=== PATIENT | female | born 1985 | race Caucasian/White ===

== ENCOUNTER 2016-11-25 08:09 | Emergency (ER) | payer OTHER ==
[~2016-11-25] VITALS: Ht 160 cm; Wt 68.4 kg
[~2016-11-25 08:09] MED LIST: BUTA1CAP57 PO; DICY10CA3 PO; ESZO1TAB6 PO; IMATREX; KETO10TA PO; METO5TAB57 PO; ONDA4TAB7 PO; PROM25SU34 RC; SUMA20SP NS; TOPI25CA5 PO; ZOLP12.52 PO
[2016-11-25] MEDS ORDERED: DIPHENHYDRAMINE 50 MG/ML, 1ML IVPush ONE (09:00)
[2016-11-25] MEDS ORDERED: SODIUM CHLORIDE FLUSH 10ML SYR IVF ONE (09:00)
[2016-11-25] MEDS ORDERED: SODIUM CHLORIDE 0.9% 1,000ML IVBOLUS ONE ×2 (09:00→10:30)
[2016-11-25] MEDS ORDERED: KETOROLAC 30 MG/1 ML IVPush ONE (09:00)
[2016-11-25] MEDS ORDERED: METOCLOPRAMIDE 5 MG/ML, 2ML IVPush ONE (09:00)
[2016-11-25] MEDS ORDERED: METOCLOPRAMIDE 5 MG/ML, 2ML ONE (09:04)
[2016-11-25] MEDS ORDERED: DIPHENHYDRAMINE 50 MG/ML, 1ML ONE (09:04)
[2016-11-25] MEDS ORDERED: KETOROLAC 30 MG/1 ML ONE (09:04)
[2016-11-25] MEDS ORDERED: MAGNESIUM SULFATE PMX 2GM/50ML 50 ML IV ONE (09:30)
[2016-11-25] MEDS ORDERED: ONDANSETRON 2MG/ML, 2ML IVPush ONE (10:30)
[2016-11-25] MEDS ORDERED: HYDROmorphone 1 MG/ML, 1ML IVPush PRN (10:30)
[2016-11-25] MEDS ORDERED: ONDANSETRON 2MG/ML, 2ML ONE (10:50)
[2016-11-25] MEDS ORDERED: HYDROmorphone 1 MG/ML, 1ML ONE (10:50)
[2016-11-25 11:00] VITALS: BP 106/62
== END 2016-11-25 14:11 | disposition home or self-care (01) ==
LOC: ED 10:49
DX: G43.909 Migraine, unspecified, not intractable, without status migrainosus (principal)
CPT/HCPCS: 36415; 80047; 84703; 96361; 96365; 96366; 96375; 99285; J1170; J1200; J1885; J2405; J2765; J3475; J7030

== ENCOUNTER 2016-11-27 11:40 | Inpatient (IN) | payer OTHER ==
[~2016-11-27] VITALS: Ht 157.5 cm; Wt 68.1 kg
[2016-11-27] MEDS ORDERED: PROM25SU34 RC (12:33)
[2016-11-27] MEDS ORDERED: ONDANSETRON 2MG/ML, 2ML IVPush ONE (13:00)
[2016-11-27] MEDS ORDERED: SODIUM CHLORIDE FLUSH 10ML SYR IVF ONE (13:00)
[2016-11-27] MEDS ORDERED: SODIUM CHLORIDE 0.9% 1,000ML IVBOLUS ONE (13:00)
[2016-11-27] MEDS ORDERED: DIPHENHYDRAMINE 50 MG/ML, 1ML IVPush ONE (13:00)
[2016-11-27] MEDS ORDERED: HYDROmorphone 1 MG/ML, 1ML IVPush PRN (13:00)
[2016-11-27] MEDS ORDERED: ONDANSETRON 2MG/ML, 2ML ONE (13:20)
[2016-11-27] MEDS ORDERED: HYDROmorphone 1 MG/ML, 1ML ONE (13:20)
[2016-11-27] MEDS ORDERED: DIPHENHYDRAMINE 50 MG/ML, 1ML ONE (13:20)
[2016-11-27 13:29] LABS: BLOOD UREA NITROGEN 30 mg/dL (7-18)
[2016-11-27] MEDS ORDERED: NS + 20MEQ KCL 1,000 ML IV SCH (15:48)
[2016-11-27] MEDS ORDERED: ACETAMINOPHEN 325 MG TABLET PO PRN (16:00)
[2016-11-27] MEDS ORDERED: POLYETHYLENE GLYCOL 17 GM PACKET PO PRN (16:00)
[2016-11-27] MEDS ORDERED: MORPHINE SULFATE 4 MG/ML, 1ML IVPush PRN (16:00)
[2016-11-27] MEDS ORDERED: VALPROATE SODIUM 100 MG/ML, 5ML IV SCH (16:00)
[2016-11-27] MEDS ORDERED: DOCUSATE 100 MG CAPSULE PO PRN (16:00)
[2016-11-27] MEDS: VALPROATE SODIUM 500 MG in DEXTROSE 5% 100 ML IV SCH ×2 (16:24→22:21)
[2016-11-27 16:26] VITALS: BP 105/71
[2016-11-27] MEDS: KETOROLAC 30 MG/1 ML IM PRN (16:35)
[2016-11-27 18:58] VITALS: BP 91/60
[2016-11-27] MEDS: TOPIRAMATE 25 MG TABLET PO SCH (19:54)
[2016-11-27] MEDS: DIPHENHYDRAMINE 50 MG/ML, 1ML IVPush PRN (19:54)
[2016-11-27] MEDS: ENOXAPARIN 40 MG/0.4 ML SQ SCH (19:55)
[2016-11-28 00:53] VITALS: BP 88/56
[2016-11-28] MEDS: VALPROATE SODIUM 500 MG in DEXTROSE 5% 100 ML IV SCH ×4 (04:10→22:37)
[2016-11-28 07:29] VITALS: BP 90/58
[2016-11-28] MEDS: ESZOPICLONE 1 MG PO SCH ×2 (07:34→22:34)
[2016-11-28] MEDS: SENNA/DOCUSATE TABLET PO SCH (07:45)
[2016-11-28] MEDS: OXYcodone IR 5MG TABLET PO PRN ×3 (07:45→15:44)
[2016-11-28] MEDS: DIPHENHYDRAMINE 50 MG/ML, 1ML IVPush PRN ×2 (07:45→15:44)
[2016-11-28] MEDS: ONDANSETRON 2MG/ML, 2ML IVP PRN ×2 (07:45→15:44)
[2016-11-28] MEDS: TOPIRAMATE 25 MG TABLET PO SCH ×2 (07:52→22:37)
[2016-11-28] MEDS: SUMATRIPTAN 6MG/0.5ML SQ PRN (11:44)
[2016-11-28 13:15] VITALS: BP 100/66
[2016-11-28 19:30] VITALS: BP 93/60
[2016-11-28] MEDS: KETOROLAC 30 MG/1 ML IM PRN (19:58)
[2016-11-28] MEDS: ENOXAPARIN 40 MG/0.4 ML SQ SCH (22:38)
[2016-11-29 01:50] VITALS: BP 88/49
[2016-11-29] MEDS: VALPROATE SODIUM 500 MG in DEXTROSE 5% 100 ML IV SCH ×4 (05:09→23:00)
[2016-11-29 07:35] VITALS: BP 88/53
[2016-11-29] MEDS: SENNA/DOCUSATE TABLET PO SCH (09:53)
[2016-11-29] MEDS: TOPIRAMATE 25 MG TABLET PO SCH ×2 (10:05→21:00)
[2016-11-29] MEDS: SUMATRIPTAN 6MG/0.5ML SQ PRN (10:06)
[2016-11-29] MEDS: DIPHENHYDRAMINE 50 MG/ML, 1ML IVPush PRN (10:06)
[2016-11-29 12:45] VITALS: BP 99/64
[2016-11-29] MEDS: ONDANSETRON 2MG/ML, 2ML IVP PRN (13:24)
[2016-11-29 16:49] LABS: HCG UR OBC PASS
[2016-11-29] MEDS: DEXAMETHASONE 4 MG/ML, 1ML IVPush SCH ×2 (17:46→23:01)
[2016-11-29 19:33] VITALS: BP 99/63
[2016-11-29] MEDS: ESZOPICLONE 1 MG PO SCH (20:59)
[2016-11-29] MEDS ORDERED: NORTRIPTYLINE 25 MG CAPSULE PO SCH (21:00)
[2016-11-29] MEDS: ENOXAPARIN 40 MG/0.4 ML SQ SCH (21:01)
[2016-11-30 03:38] VITALS: BP 99/65
[2016-11-30] MEDS: VALPROATE SODIUM 500 MG in DEXTROSE 5% 100 ML IV SCH (04:35)
[2016-11-30] MEDS: DEXAMETHASONE 4 MG/ML, 1ML IVPush SCH ×2 (05:58→12:00)
[2016-11-30 08:00] VITALS: BP 93/55
[2016-11-30] MEDS: SENNA/DOCUSATE TABLET PO SCH (08:11)
[2016-11-30] MEDS: TOPIRAMATE 25 MG TABLET PO SCH (09:42)
[2016-11-30] MEDS: ONDANSETRON 2MG/ML, 2ML IVP PRN ×2 (09:42→14:06)
[2016-11-30] MEDS ORDERED: NORT25CA PO (12:13)
[2016-11-30 12:29] VITALS: BP 103/68
[2016-11-30] MEDS: KETOROLAC 30 MG/1 ML IM PRN (14:06)
[2016-11-30] MEDS: DIPHENHYDRAMINE 50 MG/ML, 1ML IVPush PRN (14:06)
[2016-11-30] MEDS: SUMATRIPTAN 6MG/0.5ML SQ PRN (16:05)
== END 2016-11-30 18:29 | disposition home or self-care (01) | DRG 103 ==
LOC: ED 12:56 → EDIP 14:07 → 3NE 15:10
PROVIDERS: ADMIT Hospitalist; ATTEND Family Medicine
DX: G43.901 Migraine, unspecified, not intractable, with status migrainosus (principal); M54.81 Occipital neuralgia; Z82.49 Family history of ischemic heart disease and other diseases of the circulatory system; Z79.899 Other long term (current) drug therapy; Z80.9 Family history of malignant neoplasm, unspecified; Z83.3 Family history of diabetes mellitus; Z88.0 Allergy status to penicillin
CPT/HCPCS: 36415; 80048; 81025; 82040; 85025; 96361; 96374; 96375; J1100; J1170; J1650; J1885; J2405; J3480; J1200; J3030; J7030

== ENCOUNTER 2016-12-31 07:18 | Emergency (ER) | payer OTHER ==
[~2016-12-31] VITALS: Ht 160 cm; Wt 65.6 kg
[~2016-12-31 07:18] MED LIST changes: +NORT25CA PO
[2016-12-31] MEDS ORDERED: KETOROLAC 30 MG/1 ML ONE (08:23)
[2016-12-31] MEDS ORDERED: METOCLOPRAMIDE 5 MG/ML, 2ML ONE (08:23)
[2016-12-31] MEDS ORDERED: DIPHENHYDRAMINE 50 MG/ML, 1ML ONE (08:23)
[2016-12-31] MEDS ORDERED: SODIUM CHLORIDE 0.9% 1,000ML IVBOLUS ONE ×2 (08:30→09:30)
[2016-12-31] MEDS ORDERED: SODIUM CHLORIDE FLUSH 10ML SYR IVF ONE (08:30)
[2016-12-31] MEDS ORDERED: METOCLOPRAMIDE 5 MG/ML, 2ML IVPush ONE (08:30)
[2016-12-31] MEDS ORDERED: KETOROLAC 30 MG/1 ML IVPush ONE (08:30)
[2016-12-31] MEDS ORDERED: DIPHENHYDRAMINE 50 MG/ML, 1ML IVPush ONE (08:30)
[2016-12-31] MEDS ORDERED: TOPI100T94 PO (08:44)
[2016-12-31 11:52] VITALS: BP 101/51
== END 2016-12-31 11:54 | disposition home or self-care (01) ==
LOC: ED 11:30
DX: G43.119 Migraine with aura, intractable, without status migrainosus (principal); Z88.0 Allergy status to penicillin
CPT/HCPCS: 96361; 96374; 96375; 99285; J1200; J1885; J2765; J7030

== ENCOUNTER 2017-02-21 06:57 | Emergency (ER) | payer OTHER ==
[~2017-02-21] VITALS: Ht 165.1 cm; Wt 64.0 kg
[~2017-02-21 06:57] MED LIST changes: +TOPI100T94 PO
[2017-02-21] MEDS ORDERED: SODIUM CHLORIDE FLUSH 10ML SYR IVF ONE (07:30)
[2017-02-21] MEDS ORDERED: SUMATRIPTAN 6MG/0.5ML SQ ONE ×2 (07:30→07:37)
[2017-02-21] MEDS ORDERED: METOCLOPRAMIDE 5 MG/ML, 2ML IVPush ONE (07:30)
[2017-02-21] MEDS ORDERED: MAGNESIUM SULFATE PMX 2GM/50ML 50 ML IV ONE (07:30)
[2017-02-21] MEDS ORDERED: DIPHENHYDRAMINE 50 MG/ML, 1ML IVPush ONE (07:30)
[2017-02-21] MEDS ORDERED: SODIUM CHLORIDE 0.9% 1,000ML IVBOLUS ONE (07:30)
[2017-02-21] MEDS ORDERED: KETOROLAC 30 MG/1 ML IVPush ONE (07:30)
[2017-02-21] MEDS ORDERED: DEXAMETHASONE 4 MG/ML, 1ML IVPush ONE (07:30)
[2017-02-21] MEDS ORDERED: METOCLOPRAMIDE 5 MG/ML, 2ML ONE (07:37)
[2017-02-21] MEDS ORDERED: DEXAMETHASONE 4 MG/ML, 5ML ONE (07:37)
[2017-02-21] MEDS ORDERED: KETOROLAC 30 MG/1 ML ONE (07:37)
[2017-02-21] MEDS ORDERED: DIPHENHYDRAMINE 50 MG/ML, 1ML ONE (07:37)
[2017-02-21] MEDS ORDERED: PROCHLORPERAZINE 5 MG/ML, 2ML IVPush ONE (11:00)
[2017-02-21] MEDS ORDERED: DIHYDROERGOTAMINE 1 MG/ML, 1ML IM ONE (11:00)
[2017-02-21] MEDS ORDERED: PROCHLORPERAZINE 5 MG/ML, 2ML ONE (11:20)
[2017-02-21 13:39] VITALS: BP 104/62
== END 2017-02-21 13:41 | disposition home or self-care (01) ==
LOC: ED 07:22
DX: G43.009 Migraine without aura, not intractable, without status migrainosus (principal); Z90.710 Acquired absence of both cervix and uterus; Z88.0 Allergy status to penicillin
CPT/HCPCS: 96361; 96372; 96374; 96375; 99285; J0780; J1100; J1110; J1200; J1885; J2765; J3030; J3475; J7030

== ENCOUNTER 2017-04-08 08:09 | Emergency (ER) | payer OTHER ==
[~2017-04-08] VITALS: Ht 160 cm; Wt 63.9 kg
[~2017-04-08 08:09] MED LIST changes: -ESZO1TAB6 PO; +ESZO1TAB8 PO; +TOPI100T8 PO; -TOPI100T94 PO
[2017-04-08] MEDS ORDERED: METOCLOPRAMIDE 5 MG/ML, 2ML IVPush ONE (09:00)
[2017-04-08] MEDS ORDERED: SODIUM CHLORIDE FLUSH 10ML SYR IVF ONE (09:00)
[2017-04-08] MEDS ORDERED: KETOROLAC 30 MG/1 ML IVPush ONE (09:00)
[2017-04-08] MEDS ORDERED: SODIUM CHLORIDE 0.9% 1,000ML IVBOLUS ONE (09:00)
[2017-04-08] MEDS ORDERED: DIHYDROERGOTAMINE 1 MG/ML, 1ML IVPush ONE ×2 (09:00→10:00)
[2017-04-08] MEDS ORDERED: DIPHENHYDRAMINE 50 MG/ML, 1ML IVPush ONE (09:00)
[2017-04-08] MEDS ORDERED: DEXAMETHASONE 4 MG/ML, 1ML IVPush ONE (09:00)
[2017-04-08] MEDS ORDERED: DEXAMETHASONE 4 MG/ML, 5ML ONE (09:15)
[2017-04-08] MEDS ORDERED: DIPHENHYDRAMINE 50 MG/ML, 1ML ONE (09:15)
[2017-04-08] MEDS ORDERED: KETOROLAC 30 MG/1 ML ONE (09:16)
[2017-04-08] MEDS ORDERED: METOCLOPRAMIDE 5 MG/ML, 2ML ONE (09:16)
[2017-04-08] MEDS ORDERED: HALOPERIDOL 5 MG/ML IM ONE (10:30)
[2017-04-08 11:53] VITALS: BP 122/79
== END 2017-04-08 11:59 | disposition home or self-care (01) ==
LOC: ED 09:00
DX: G43.019 Migraine without aura, intractable, without status migrainosus (principal)
CPT/HCPCS: 96361; 96374; 96375; 99285; J1100; J1110; J1200; J1885; J2765; J7030

== ENCOUNTER 2017-04-12 15:23 | Inpatient (IN) | payer OTHER ==
[~2017-04-12] VITALS: Ht 160 cm; Wt 67.3 kg
[2017-04-12] MEDS ORDERED: METOCLOPRAMIDE 5 MG/ML, 2ML ONE (16:14)
[2017-04-12] MEDS ORDERED: KETOROLAC 30 MG/1 ML ONE (16:14)
[2017-04-12] MEDS ORDERED: DEXAMETHASONE 4 MG/ML, 1ML ONE ×2 (16:15→16:35)
[2017-04-12] MEDS ORDERED: DIPHENHYDRAMINE 50 MG/ML, 1ML ONE (16:15)
[2017-04-12] MEDS ORDERED: SODIUM CHLORIDE 0.9% 1,000ML IVBOLUS ONE (16:30)
[2017-04-12] MEDS ORDERED: DIHYDROERGOTAMINE 1 MG/ML, 1ML IM ONE (16:30)
[2017-04-12] MEDS ORDERED: SODIUM CHLORIDE FLUSH 10ML SYR IVF ONE (16:30)
[2017-04-12] MEDS ORDERED: DEXAMETHASONE 4 MG/ML, 1ML IVPush ONE (16:30)
[2017-04-12] MEDS ORDERED: DIPHENHYDRAMINE 50 MG/ML, 1ML IVPush ONE (16:30)
[2017-04-12] MEDS ORDERED: KETOROLAC 30 MG/1 ML IVPush ONE (16:30)
[2017-04-12] MEDS ORDERED: METOCLOPRAMIDE 5 MG/ML, 2ML IVPush ONE (16:30)
[2017-04-12] MEDS ORDERED: MAGNESIUM SULFATE 1 GM in SODIUM CHLORIDE 0.9% 50 ML IV ONE (17:30)
[2017-04-12] MEDS ORDERED: METOCLOPRAMIDE 5 MG/ML, 2ML IVPush PRN (20:30)
[2017-04-12] MEDS ORDERED: ACETAMINOPHEN 500 MG TABLET PO PRN (20:30)
[2017-04-12] MEDS ORDERED: ONDANSETRON ODT 4 MG PO PRN (20:30)
[2017-04-12] MEDS ORDERED: KETOROLAC 30 MG/1 ML IVPush PRN (21:30)
[2017-04-12] MEDS ORDERED: DIPHENHYDRAMINE 50 MG/ML, 1ML IVPush PRN (21:30)
[2017-04-12] MEDS ORDERED: TOPI100C5 PO (21:56)
[2017-04-13] MEDS: VALPROATE SODIUM 500 MG in SODIUM CHLORIDE 0.9% 100 ML IV SCH ×4 (00:04→18:09)
[2017-04-13] MEDS: SODIUM CHLORIDE 0.9% 1,000 ML IV SCH ×2 (00:05→14:41)
[2017-04-13] MEDS: DEXAMETHASONE 4 MG/ML, 1ML IVPush SCH ×4 (00:24→18:09)
[2017-04-13 02:10] VITALS: BP 115/77
[2017-04-13 08:55] VITALS: BP 122/78
[2017-04-13] MEDS ORDERED: KETOROLAC 30 MG/1 ML IM PRN (10:30)
[2017-04-13] MEDS: PROCHLORPERAZINE 5 MG/ML, 2ML IVPush PRN (10:35)
[2017-04-13] MEDS: DIPHENHYDRAMINE 50 MG/ML, 1ML IVPush PRN (10:35)
[2017-04-13] MEDS ORDERED: KETOROLAC 30 MG/1 ML IVPush PRN (11:30)
[2017-04-13 15:38] VITALS: BP 113/75
[2017-04-13 19:24] VITALS: BP 106/68
[2017-04-13] MEDS ORDERED: NORTRIPTYLINE 25 MG CAPSULE PO SCH (21:00)
[2017-04-14] MEDS: SODIUM CHLORIDE 0.9% 1,000 ML IV SCH ×2 (00:28→11:46)
[2017-04-14] MEDS: VALPROATE SODIUM 500 MG in SODIUM CHLORIDE 0.9% 100 ML IV SCH ×2 (00:28→06:04)
[2017-04-14] MEDS: DEXAMETHASONE 4 MG/ML, 1ML IVPush SCH ×2 (00:28→06:04)
[2017-04-14 02:22] VITALS: BP 120/75
[2017-04-14 05:16] LABS: HEMATOCRIT 37.9 % (34.6-47.8); HEMOGLOBIN 12.6 g/dL (11.7-16.4); WHITE BLOOD COUNT 9.9 x10^3/uL (3.4-10)
[2017-04-14 05:28] LABS: ASPARTATE AMINO TRANSFERASE 8 U/L (15-37); BLOOD UREA NITROGEN 12 mg/dL (7-18)
[2017-04-14 07:39] VITALS: BP 127/82
[2017-04-14] MEDS ORDERED: DIVALPROEX 500 MG TAB.ER.24H PO SCH (10:30)
[2017-04-14] MEDS: DIPHENHYDRAMINE 50 MG/ML, 1ML IVPush PRN (10:34)
[2017-04-14] MEDS: PROCHLORPERAZINE 5 MG/ML, 2ML IVPush PRN (10:34)
[2017-04-14 13:11] VITALS: BP 102/64
[2017-04-14] MEDS ORDERED: NORT50CA PO (16:57)
[2017-04-14] MEDS ORDERED: DIVA500T4 PO (16:57)
[2017-04-14] MEDS ORDERED: NORTRIPTYLINE 25 MG CAPSULE PO SCH (21:00)
== END 2017-04-14 18:17 | disposition home or self-care (01) | DRG 103 ==
LOC: ED 17:03 → SUATTDRO 19:14 → EDIP 20:27 → 4NOR 21:30
PROVIDERS: ADMIT Hospitalist; ATTEND Internal Medicine
DX: G43.501 Persistent migraine aura without cerebral infarction, not intractable, with status migrainosus (principal); F41.1 Generalized anxiety disorder; H53.149 Visual discomfort, unspecified; H51.0 Palsy (spasm) of conjugate gaze; Z79.899 Other long term (current) drug therapy; Z88.0 Allergy status to penicillin; Z90.710 Acquired absence of both cervix and uterus
CPT/HCPCS: 36415; 80053; 85025; 96361; 96372; 96374; 96375; J1100; J1885; J3475; Q0162; J0780; J1110; J1200; J2765; J7030

== ENCOUNTER 2017-06-15 13:15 | Inpatient (IN) | payer OTHER ==
[~2017-06-15] VITALS: Ht 160 cm; Wt 64.2 kg
[~2017-06-15 13:15] MED LIST changes: +DIVA500T4 PO; +NORT50CA PO; +TOPI100C5 PO
[2017-06-15] MEDS ORDERED: SODIUM CHLORIDE FLUSH 10ML SYR IVF ONE (13:30)
[2017-06-15] MEDS ORDERED: SODIUM CHLORIDE 0.9% 1,000ML IVBOLUS ONE (13:30)
[2017-06-15 13:45] LABS: HEMATOCRIT 40.6 % (34.6-47.8); HEMOGLOBIN 13.3 g/dL (11.7-16.4); WHITE BLOOD COUNT 10.3 x10^3/uL (3.4-10)
[2017-06-15 13:58] LABS: BLOOD UREA NITROGEN 12 mg/dL (7-18)
[2017-06-15] MEDS ORDERED: DIPHENHYDRAMINE 50 MG/ML, 1ML IVPush ONE ×2 (14:30→18:00)
[2017-06-15] MEDS ORDERED: DIHYDROERGOTAMINE 1 MG/ML, 1ML IM ONE (14:30)
[2017-06-15] MEDS ORDERED: MAGNESIUM SULFATE 1 GM in SODIUM CHLORIDE 0.9% 50 ML IV ONE (14:30)
[2017-06-15] MEDS ORDERED: DIPHENHYDRAMINE 50 MG/ML, 1ML ONE (14:30)
[2017-06-15] MEDS ORDERED: METOCLOPRAMIDE 5 MG/ML, 2ML IVPush ONE (14:30)
[2017-06-15] MEDS ORDERED: METOCLOPRAMIDE 5 MG/ML, 2ML ONE (14:30)
[2017-06-15] MEDS ORDERED: KETAMINE 100 MG/ML, 5ML IV ONE (17:00)
[2017-06-15] MEDS ORDERED: KETAMINE 10 MG/ML, 20ML ONE (17:13)
[2017-06-15] MEDS ORDERED: SUMA20SP NAS (17:25)
[2017-06-15] MEDS ORDERED: SODIUM CHLORIDE FLUSH 10ML SYR IVF PRN (17:30)
[2017-06-15] MEDS ORDERED: BISACODYL 10 MG SUPP PR PRN (18:00)
[2017-06-15] MEDS ORDERED: PROCHLORPERAZINE 5 MG/ML, 2ML IVPush ONE (18:00)
[2017-06-15] MEDS ORDERED: ACETAMINOPHEN 325 MG TABLET PO PRN (18:00)
[2017-06-15] MEDS ORDERED: POLYETHYLENE GLYCOL 17 GM PACKET PO PRN (18:00)
[2017-06-15] MEDS ORDERED: KETOROLAC 30 MG/1 ML IVPush ONE (18:00)
[2017-06-15 19:30] VITALS: BP 104/72
[2017-06-15] MEDS: NORTRIPTYLINE 25 MG CAPSULE PO SCH (22:26)
[2017-06-15] MEDS: SODIUM CHLORIDE FLUSH 10ML SYR IVF SCH (22:26)
[2017-06-15] MEDS: TOPIRAMATE 100 MG TABLET PO SCH (23:55)
[2017-06-16 02:46] VITALS: BP 105/70
[2017-06-16] MEDS: ONDANSETRON 2MG/ML, 2ML IVPush PRN ×2 (05:37→14:44)
[2017-06-16] MEDS: SUMATRIPTAN 25 MG TABLET PO PRN ×2 (06:33→08:59)
[2017-06-16 07:53] VITALS: BP 112/76
[2017-06-16] MEDS: SODIUM CHLORIDE FLUSH 10ML SYR IVF SCH ×2 (08:59→19:20)
[2017-06-16] MEDS: SENNA/DOCUSATE TABLET PO SCH (08:59)
[2017-06-16] MEDS ORDERED: VALPROATE SODIUM 500 MG in DEXTROSE 5% 100 ML IV SCH (12:00)
[2017-06-16 14:13] VITALS: BP 107/71
[2017-06-16] MEDS: KETOROLAC 30 MG/1 ML IVPush PRN (14:45)
[2017-06-16] MEDS ORDERED: VALPROATE SODIUM 100 MG/ML, 5ML IV SCH (18:30)
[2017-06-16] MEDS ORDERED: SUMATRIPTAN 6MG/0.5ML SQ ONE (18:30)
[2017-06-16] MEDS: D5%-0.9% NACL 1,000 ML IV SCH (18:43)
[2017-06-16 19:13] VITALS: BP 103/69
[2017-06-16] MEDS: TOPIRAMATE 100 MG TABLET PO SCH (19:29)
[2017-06-16] MEDS: LORazepam 2 MG/ML, 1ML IVPush PRN (19:29)
[2017-06-16] MEDS: NORTRIPTYLINE 25 MG CAPSULE PO SCH (19:29)
[2017-06-17] MEDS: VALPROATE SODIUM 500 MG in DEXTROSE 5% 100 ML IV SCH ×3 (00:18→23:35)
[2017-06-17 02:32] VITALS: BP 100/64
[2017-06-17] MEDS: ONDANSETRON 2MG/ML, 2ML IVPush PRN ×2 (02:35→08:28)
[2017-06-17] MEDS: KETOROLAC 30 MG/1 ML IVPush PRN ×2 (05:53→16:26)
[2017-06-17] MEDS: D5%-0.9% NACL 1,000 ML IV SCH (05:53)
[2017-06-17 07:31] VITALS: BP 105/67
[2017-06-17] MEDS: SENNA/DOCUSATE TABLET PO SCH (08:13)
[2017-06-17] MEDS: SODIUM CHLORIDE FLUSH 10ML SYR IVF SCH ×2 (08:13→21:00)
[2017-06-17] MEDS ORDERED: KETOROLAC 30 MG/1 ML IV ONE (08:30)
[2017-06-17] MEDS ORDERED: SUMATRIPTAN 6MG/0.5ML SQ ONE ×2 (09:30→10:30)
[2017-06-17] MEDS: LORazepam 2 MG/ML, 1ML IVPush PRN ×2 (11:52→22:08)
[2017-06-17 13:46] VITALS: BP 106/99
[2017-06-17 19:04] VITALS: BP 102/68
[2017-06-17] MEDS: NORTRIPTYLINE 25 MG CAPSULE PO SCH (22:09)
[2017-06-18 02:11] VITALS: BP 112/77
[2017-06-18] MEDS: ONDANSETRON 2MG/ML, 2ML IVPush PRN (06:38)
[2017-06-18 07:44] VITALS: BP 111/70
[2017-06-18] MEDS: SODIUM CHLORIDE FLUSH 10ML SYR IVF SCH ×2 (08:14→20:57)
[2017-06-18] MEDS: KETOROLAC 30 MG/1 ML IVPush PRN (08:14)
[2017-06-18] MEDS: SENNA/DOCUSATE TABLET PO SCH (08:14)
[2017-06-18] MEDS: ONDANSETRON 2MG/ML, 2ML IVPush SCH ×3 (12:31→21:34)
[2017-06-18] MEDS: LORazepam 2 MG/ML, 1ML IVPush PRN ×2 (13:33→20:57)
[2017-06-18 14:00] VITALS: BP 124/88
[2017-06-18] MEDS: DIHYDROERGOTAMINE 1 MG/ML, 1ML IVPush SCH ×2 (14:07→22:05)
[2017-06-18 19:12] VITALS: BP 123/84
[2017-06-18] MEDS: NORTRIPTYLINE 25 MG CAPSULE PO SCH (20:57)
[2017-06-19 01:33] VITALS: BP 128/85
[2017-06-19] MEDS: ONDANSETRON 2MG/ML, 2ML IVPush SCH ×3 (05:27→21:38)
[2017-06-19] MEDS: DIHYDROERGOTAMINE 1 MG/ML, 1ML IVPush SCH ×3 (06:08→21:38)
[2017-06-19 07:19] VITALS: BP 127/88
[2017-06-19] MEDS: SENNA/DOCUSATE TABLET PO SCH (09:00)
[2017-06-19] MEDS: SODIUM CHLORIDE FLUSH 10ML SYR IVF SCH ×2 (10:41→21:39)
[2017-06-19] MEDS: LORazepam 2 MG/ML, 1ML IVPush PRN (10:42)
[2017-06-19 14:05] VITALS: BP 114/79
[2017-06-19 20:00] VITALS: BP 100/65
[2017-06-19] MEDS: NORTRIPTYLINE 25 MG CAPSULE PO SCH (21:38)
[2017-06-20 01:39] VITALS: BP 111/76
[2017-06-20] MEDS: ONDANSETRON 2MG/ML, 2ML IVPush SCH ×3 (05:56→21:28)
[2017-06-20] MEDS: DIHYDROERGOTAMINE 1 MG/ML, 1ML IVPush SCH ×3 (05:56→22:06)
[2017-06-20 08:10] VITALS: BP 119/85
[2017-06-20] MEDS: SENNA/DOCUSATE TABLET PO SCH (09:00)
[2017-06-20] MEDS: SODIUM CHLORIDE FLUSH 10ML SYR IVF SCH ×2 (09:00→21:28)
[2017-06-20] MEDS: LORazepam 2 MG/ML, 1ML IVPush PRN ×2 (10:31→21:28)
[2017-06-20 13:50] VITALS: BP 104/56
[2017-06-20 20:49] VITALS: BP 105/67
[2017-06-20] MEDS: NORTRIPTYLINE 25 MG CAPSULE PO SCH (21:28)
[2017-06-21 01:20] VITALS: BP 98/63
[2017-06-21] MEDS: ONDANSETRON 2MG/ML, 2ML IVPush SCH ×3 (05:37→21:21)
[2017-06-21] MEDS: DIHYDROERGOTAMINE 1 MG/ML, 1ML IVPush SCH (06:02)
[2017-06-21 07:51] VITALS: BP 113/69
[2017-06-21] MEDS: SENNA/DOCUSATE TABLET PO SCH (09:00)
[2017-06-21] MEDS: SODIUM CHLORIDE FLUSH 10ML SYR IVF SCH ×2 (09:00→21:21)
[2017-06-21] MEDS ORDERED: MEPERIDINE/PF 50 MG/ML IVPush ONE (11:30)
[2017-06-21] MEDS ORDERED: ONDANSETRON 2MG/ML, 2ML IVPush ONE (11:30)
[2017-06-21] MEDS ORDERED: KETOROLAC 30 MG/1 ML IVPush ONE (11:30)
[2017-06-21 14:15] VITALS: BP 104/68
[2017-06-21 19:36] VITALS: BP 103/70
[2017-06-21] MEDS: NORTRIPTYLINE 25 MG CAPSULE PO SCH (21:21)
[2017-06-22 04:26] VITALS: BP 104/69
[2017-06-22] MEDS: ONDANSETRON 2MG/ML, 2ML IVPush SCH ×3 (06:01→22:15)
[2017-06-22 07:52] VITALS: BP 106/69
[2017-06-22] MEDS: SENNA/DOCUSATE TABLET PO SCH (09:34)
[2017-06-22] MEDS: SODIUM CHLORIDE FLUSH 10ML SYR IVF SCH ×2 (09:35→21:41)
[2017-06-22] MEDS: LORazepam 2 MG/ML, 1ML IVPush PRN (09:50)
[2017-06-22 14:05] VITALS: BP 123/77
[2017-06-22] MEDS ORDERED: KETOROLAC 30 MG/1 ML IVPush ONE (14:30)
[2017-06-22] MEDS ORDERED: MEPERIDINE/PF 50 MG/ML IVPush ONE (14:30)
[2017-06-22 19:48] VITALS: BP 114/73
[2017-06-22] MEDS: NORTRIPTYLINE 25 MG CAPSULE PO SCH (21:40)
[2017-06-23 01:48] VITALS: BP 119/75
[2017-06-23] MEDS: LORazepam 2 MG/ML, 1ML IVPush PRN (03:04)
[2017-06-23] MEDS: ONDANSETRON 2MG/ML, 2ML IVPush SCH ×2 (06:03→15:17)
[2017-06-23 07:45] VITALS: BP 125/74
[2017-06-23] MEDS: SENNA/DOCUSATE TABLET PO SCH (08:51)
[2017-06-23] MEDS: SODIUM CHLORIDE FLUSH 10ML SYR IVF SCH (08:52)
[2017-06-23] MEDS ORDERED: KETOROLAC 30 MG/1 ML IVPush SCH (09:30)
[2017-06-23] MEDS ORDERED: DIPHENHYDRAMINE 50 MG/ML, 1ML IVPush PRN (09:30)
[2017-06-23] MEDS ORDERED: PROCHLORPERAZINE 5 MG/ML, 2ML IVPush ONE (10:00)
[2017-06-23] MEDS: KETOROLAC 30 MG/1 ML IVPush SCH ×2 (10:40→15:17)
[2017-06-23 13:39] VITALS: BP 115/67
[2017-06-23] MEDS ORDERED: PRED20TA PO (14:20)
== END 2017-06-23 18:07 | disposition home or self-care (01) | DRG 103 ==
LOC: ED 13:49 → EDIP 17:22 → 3NE 18:13
PROVIDERS: ADMIT Hospitalist; ATTEND Family Medicine
DX: G43.011 Migraine without aura, intractable, with status migrainosus (principal); G93.89 Other specified disorders of brain; H53.149 Visual discomfort, unspecified; F12.90 Cannabis use, unspecified, uncomplicated; R00.0 Tachycardia, unspecified; F41.1 Generalized anxiety disorder; Z90.710 Acquired absence of both cervix and uterus; Z88.0 Allergy status to penicillin; Z80.9 Family history of malignant neoplasm, unspecified; Z83.3 Family history of diabetes mellitus; Z82.49 Family history of ischemic heart disease and other diseases of the circulatory system
CPT/HCPCS: 36415; 70450; 80048; 82040; 83735; 84703; 85025; J1885; J2175; J2405; J2930; J3475; J7042; J0780; J1110; J1200; J2060; J2765; J3030; J7030

== ENCOUNTER 2017-07-14 09:05 | Emergency (ER) | payer OTHER ==
[~2017-07-14] VITALS: Ht 160 cm; Wt 61.4 kg
[~2017-07-14 09:05] MED LIST changes: +PRED20TA PO; +SUMA20SP NAS
[2017-07-14] MEDS ORDERED: SODIUM CHLORIDE 0.9% 1,000ML IVBOLUS ONE (09:30)
[2017-07-14] MEDS ORDERED: KETOROLAC 30 MG/1 ML IVPush ONE (09:30)
[2017-07-14] MEDS ORDERED: DIPHENHYDRAMINE 50 MG/ML, 1ML IVPush ONE (09:30)
[2017-07-14] MEDS ORDERED: METOCLOPRAMIDE 5 MG/ML, 2ML IVPush ONE (09:30)
[2017-07-14] MEDS ORDERED: MAGNESIUM SULFATE 1 GM in SODIUM CHLORIDE 0.9% 50 ML IV ONE (09:30)
[2017-07-14] MEDS ORDERED: DIPHENHYDRAMINE 50 MG/ML, 1ML ONE (09:56)
[2017-07-14] MEDS ORDERED: KETOROLAC 30 MG/1 ML ONE (09:56)
[2017-07-14] MEDS ORDERED: METOCLOPRAMIDE 5 MG/ML, 2ML ONE (09:56)
[2017-07-14 14:24] VITALS: BP 97/60
== END 2017-07-14 14:26 | disposition home or self-care (01) ==
LOC: ED 13:46
DX: G43.909 Migraine, unspecified, not intractable, without status migrainosus (principal); F41.9 Anxiety disorder, unspecified; Z88.0 Allergy status to penicillin
CPT/HCPCS: 96365; 96375; 99285; J1200; J1885; J2765; J3475; J7030

== ENCOUNTER 2017-09-03 06:11 | Observation (INO) | payer OTHER ==
[~2017-09-03] VITALS: Ht 160 cm; Wt 59.3 kg
[2017-09-03] VITALS (7 sets, daily range): BP systolic 86–98; BP diastolic 55–64
[2017-09-03] MEDS ORDERED: DIPHENHYDRAMINE 50 MG/ML, 1ML IVPush ONE ×3 (06:30→14:00)
[2017-09-03] MEDS ORDERED: HYDROmorphone 1 MG/ML, 1ML IVPush PRN (06:30)
[2017-09-03] MEDS ORDERED: PROCHLORPERAZINE 5 MG/ML, 2ML IVPush ONE (06:30)
[2017-09-03] MEDS ORDERED: SODIUM CHLORIDE FLUSH 10ML SYR IVF ONE (06:30)
[2017-09-03] MEDS ORDERED: SODIUM CHLORIDE 0.9% 1,000ML IVBOLUS ONE ×2 (06:30→10:00)
[2017-09-03] MEDS ORDERED: ONDANSETRON 2MG/ML, 2ML IVPush ONE (06:30)
[2017-09-03] MEDS ORDERED: PROCHLORPERAZINE 5 MG/ML, 2ML ONE (06:53)
[2017-09-03] MEDS ORDERED: DIPHENHYDRAMINE 50 MG/ML, 1ML ONE (06:54)
[2017-09-03] MEDS ORDERED: ONDANSETRON 2MG/ML, 2ML ONE (06:54)
[2017-09-03] MEDS ORDERED: HYDROmorphone 2 MG/ML, 1ML ONE ×2 (06:55→11:30)
[2017-09-03] MEDS ORDERED: ONAB100V INJ (08:05)
[2017-09-03] MEDS ORDERED: MAGNESIUM SULFATE 1 GM in SODIUM CHLORIDE 0.9% 50 ML IV ONE (09:30)
[2017-09-03 10:01] LABS: BASOPHILS # (AUTO) 0.02 x10^3/uL (0-0.1); BASOPHILS % (AUTO) 0 % (0-1); EOSINOPHILS # (AUTO) 0.05 x10^3/uL (0-0.4); EOSINOPHILS % (AUTO) 1 % (1-7); LYMPHOCYTES # (AUTO) 1.75 x10^3/uL (1-3.4); LYMPHOCYTES % (AUTO) 23 % (22-44); MD NO; MEAN CORPUSCULAR HGB CONC 32.9 g/dL (32.4-35.8); MEAN PLATELET VOLUME 7.8 fL (7.4-10.4); MONOCYTES # (AUTO) 0.31 x10^3/uL (0.2-0.8); MONOCYTES % (AUTO) 4 % (2-9); NEUTROPHILS # (AUTO) 5.43 x10^3/uL (1.8-6.8); NEUTROPHILS % (AUTO) 72 % (42-75); PLATELET COUNT 242 x10^3/uL (130-400); RED BLOOD COUNT 4.12 x10^6/uL (3.82-5.3); RED CELL DISTRIBUTION WIDTH 13.6 % (9.6-15.2)
[2017-09-03 10:12] LABS: ALANINE AMINOTRANSFERASE 12 U/L (12-78); ALBUMIN 3.5 g/dL (3.4-5.0); ANION GAP 7 mmol/L (5-15); CALCIUM 7.7 mg/dL (8.5-10.1); CHLORIDE 115 mmol/L (98-107)
[2017-09-03 10:16] LABS: ALKALINE PHOSPHATASE 54 U/L (45-117); BILIRUBIN,TOTAL 0.2 mg/dL (0.2-1.0); TOTAL PROTEIN 6.5 g/dL (6.4-8.2)
[2017-09-03] MEDS ORDERED: METOCLOPRAMIDE 5 MG/ML, 2ML IVPush PRN (11:00)
[2017-09-03] MEDS ORDERED: POLYETHYLENE GLYCOL 17 GM PACKET PO PRN (11:00)
[2017-09-03] MEDS ORDERED: ONDANSETRON 2MG/ML, 2ML IVPush PRN (11:00)
[2017-09-03] MEDS: SODIUM CHLORIDE 0.9% 1,000 ML IV SCH ×2 (12:20→20:37)
[2017-09-03] MEDS ORDERED: METOCLOPRAMIDE 5 MG/ML, 2ML IVPush ONE ×2 (12:30→14:00)
[2017-09-03] MEDS ORDERED: KETOROLAC 30 MG/1 ML IVPush ONE ×2 (12:30→14:00)
[2017-09-03] MEDS ORDERED: VALPROATE SODIUM 500 MG in DEXTROSE 5% 100 ML IV SCH (12:30)
[2017-09-03] MEDS: ENOXAPARIN 40 MG/0.4 ML SQ SCH (14:30)
[2017-09-03] MEDS ORDERED: [UNRECOGNIZED DRUG - REMARK] MC SCH (16:30)
[2017-09-03] MEDS ORDERED: VALPROATE SODIUM 500 MG in DEXTROSE 5% 100 ML IV ONE (16:30)
[2017-09-03 16:39] LABS: MICROSCOPIC INDICATED
[2017-09-03 16:51] LABS: CULTURE INDICATED? YES
[2017-09-04] MEDS: VALPROATE SODIUM 500 MG in DEXTROSE 5% 100 ML IV SCH ×4 (00:10→18:08)
[2017-09-04 00:17] VITALS: BP 91/59
[2017-09-04 01:04] VITALS: BP 95/61
[2017-09-04] MEDS: SODIUM CHLORIDE 0.9% 1,000 ML IV SCH ×3 (05:53→21:22)
[2017-09-04 07:35] VITALS: BP 101/68
[2017-09-04] MEDS: SENNA/DOCUSATE TABLET PO SCH (09:00)
[2017-09-04] MEDS: KETOROLAC 30 MG/1 ML IVPush PRN ×3 (11:16→18:08)
[2017-09-04] MEDS: DIPHENHYDRAMINE 50 MG/ML, 1ML IVPush PRN ×2 (12:15→12:59)
[2017-09-04] MEDS: METOCLOPRAMIDE 5 MG/ML, 2ML IVPush PRN ×2 (12:15→13:00)
[2017-09-04] MEDS ORDERED: SUMATRIPTAN 6MG/0.5ML SQ PRN (12:30)
[2017-09-04] MEDS: ENOXAPARIN 40 MG/0.4 ML SQ SCH (12:59)
[2017-09-04 15:04] VITALS: BP 96/63
[2017-09-04 18:47] VITALS: BP 98/63
[2017-09-05] MEDS: VALPROATE SODIUM 500 MG in DEXTROSE 5% 100 ML IV SCH ×2 (00:21→05:59)
[2017-09-05 00:59] VITALS: BP 115/78
[2017-09-05] MEDS: SODIUM CHLORIDE 0.9% 1,000 ML IV SCH (04:23)
[2017-09-05 07:17] VITALS: BP 91/49
[2017-09-05] MEDS: SENNA/DOCUSATE TABLET PO SCH (08:14)
== END 2017-09-05 11:31 | disposition home or self-care (01) ==
LOC: ED 06:29 → EDIP 09:13 → INTOOBSV 09:13 → 4WST 11:34
PROVIDERS: ADMIT Hospitalist; ATTEND Hospitalist
DX: G43.909 Migraine, unspecified, not intractable, without status migrainosus (principal); J44.9 Chronic obstructive pulmonary disease, unspecified; I25.10 Atherosclerotic heart disease of native coronary artery without angina pectoris; I10 Essential (primary) hypertension; E11.9 Type 2 diabetes mellitus without complications
CPT/HCPCS: 36415; 80053; 81001; 84703; 85025; 87077; 87086; 87186; 96361; 96365; 96366; 96367; 96372; 96375; 96376; 99285; G0378; J0780; J1170; J1200; J1650; J1885; J2765; J3475; J7030

== ENCOUNTER → 2017-10-05 | Outpatient (CLI) | payer OTHER ==
[~2017-10-05] MED LIST changes: +ONAB100V INJ
[2017-10-05 09:24] LABS: BASOPHILS # (AUTO) 0.02 x10^3/uL (0-0.1); BASOPHILS % (AUTO) 0 % (0-1); EOSINOPHILS # (AUTO) 0.02 x10^3/uL (0-0.4); EOSINOPHILS % (AUTO) 0 % (1-7); LYMPHOCYTES # (AUTO) 2.42 x10^3/uL (1-3.4); LYMPHOCYTES % (AUTO) 27 % (22-44); MD NO; MEAN CORPUSCULAR HEMOGLOBIN 28.7 pg (27.0-34.8); MEAN CORPUSCULAR HGB CONC 32.4 g/dL (32.4-35.8); MEAN CORPUSCULAR VOLUME 88.6 fL (80-100); MEAN PLATELET VOLUME 7.7 fL (7.4-10.4); MONOCYTES # (AUTO) 0.55 x10^3/uL (0.2-0.8); MONOCYTES % (AUTO) 6 % (2-9); NEUTROPHILS % (AUTO) 66 % (42-75); PLATELET COUNT 266 x10^3/uL (130-400); RED BLOOD COUNT 4.71 x10^6/uL (3.82-5.3); RED CELL DISTRIBUTION WIDTH 12.9 % (9.6-15.2)
[2017-10-05 09:34] LABS: ANION GAP 8 mmol/L (5-15); CALCIUM 9.3 mg/dL (8.5-10.1); CHLORIDE 108 mmol/L (98-107)
[2017-10-05 09:46] LABS: ALANINE AMINOTRANSFERASE 22 U/L (12-78); ALKALINE PHOSPHATASE 64 U/L (45-117); BILIRUBIN,TOTAL 0.5 mg/dL (0.2-1.0); CHOL/HDL RATIO 3.5; CHOLESTEROL, TOTAL 203 mg/dL (140-239); CREATININE 0.73 mg/dL (0.55-1.02); HDL CHOL % 29 % (28-40); HDL CHOLESTEROL (DIRECT) 58 mg/dL (40-60); LDL CHOLESTEROL,CALCULATED 125 mg/dL (54-169); LDL/HDL RATIO 2.2 (0.5-3.0); THYROID STIMULATING HORMONE 0.655 mIU/L (0.358-3.740); TOTAL PROTEIN 8.1 g/dL (6.4-8.2); TRIGLYCERIDES 102 mg/dL (50-200); VLDL CHOLESTEROL 20 mg/dL (0-25)
== END ==
LOC: LAB 09:08
PROVIDERS: ATTEND Internal Medicine
DX: E78.5 Hyperlipidemia, unspecified (principal); R73.9 Hyperglycemia, unspecified
CPT/HCPCS: 36415; 80053; 80061; 84443; 85025

== ENCOUNTER 2017-12-09 14:28 | Inpatient (IN) | payer OTHER ==
[~2017-12-09] VITALS: Ht 160 cm; Wt 58.2 kg
[2017-12-09] MEDS ORDERED: SODIUM CHLORIDE FLUSH 10ML SYR IVF ONE (15:00)
[2017-12-09 15:23] LABS: BASOPHILS # (AUTO) 0.01 x10^3/uL (0-0.1); BASOPHILS % (AUTO) 0 % (0-1); EOSINOPHILS # (AUTO) 0.02 x10^3/uL (0-0.4); EOSINOPHILS % (AUTO) 0 % (1-7); LYMPHOCYTES # (AUTO) 1.64 x10^3/uL (1-3.4); LYMPHOCYTES % (AUTO) 10 % (22-44); MD NO; MEAN CORPUSCULAR HEMOGLOBIN 29.7 pg (27.0-34.8); MEAN CORPUSCULAR HGB CONC 33.6 g/dL (32.4-35.8); MEAN CORPUSCULAR VOLUME 88.3 fL (80-100); MEAN PLATELET VOLUME 6.9 fL (7.4-10.4); MONOCYTES # (AUTO) 0.86 x10^3/uL (0.2-0.8); MONOCYTES % (AUTO) 5 % (2-9); NEUTROPHILS % (AUTO) 85 % (42-75); PLATELET COUNT 352 x10^3/uL (130-400); RED BLOOD COUNT 4.34 x10^6/uL (3.82-5.3); RED CELL DISTRIBUTION WIDTH 13.5 % (9.6-15.2)
[2017-12-09 15:31] LABS: ALANINE AMINOTRANSFERASE 33 U/L (12-78); ALBUMIN 3.9 g/dL (3.4-5.0); ANION GAP 5 mmol/L (5-15); CHLORIDE 113 mmol/L (98-107)
[2017-12-09 15:35] LABS: ALKALINE PHOSPHATASE 62 U/L (45-117); BILIRUBIN,TOTAL 0.3 mg/dL (0.2-1.0); TOTAL PROTEIN 7.3 g/dL (6.4-8.2); TROPONIN I < 0.015 ng/mL (0.000-0.045)
[2017-12-09] MEDS ORDERED: ONDANSETRON ODT 4 MG ONE (16:56)
[2017-12-09] MEDS ORDERED: MORPHINE SULFATE 4 MG/ML, 1ML ONE (16:56)
[2017-12-09 16:59] LABS: MICROSCOPIC AUTO
[2017-12-09] MEDS ORDERED: morphine SULFATE 10 MG/ML, 1ML IVPush ONE (17:00)
[2017-12-09] MEDS ORDERED: ONDANSETRON ODT 4 MG PO ONE (17:00)
[2017-12-09 17:01] LABS: CULTURE INDICATED? YES
[2017-12-09] MEDS ORDERED: LORazepam 2 MG/ML, 1ML IVPush PRN (17:30)
[2017-12-09] MEDS ORDERED: VALPROATE SODIUM 500 MG in DEXTROSE 5% 100 ML IV SCH (17:30)
[2017-12-09] MEDS ORDERED: hydrALAzine 20 MG/ML, 1ML IVPush PRN (17:30)
[2017-12-09] MEDS ORDERED: ONDANSETRON 2MG/ML, 2ML IVPush PRN (17:30)
[2017-12-09] MEDS ORDERED: POTASSIUM CHLORIDE 40 MEQ in SODIUM CHLORIDE 0.9% 500 ML IV ONE (18:00)
[2017-12-09] MEDS: METOCLOPRAMIDE 5 MG/ML, 2ML IVPush SCH (18:44)
[2017-12-09 18:57] LABS: AMPHETAMINE SCREEN, URINE Negative (Negative); BARBITURATE SCREEN, URINE Positive (Negative); BENZODIAZEPINE SCREEN, URINE Negative (Negative); CANNABINOID SCREEN, URINE Positive (Negative); COCAINE SCREEN, URINE Negative (Negative); METHADONE SCREEN, URINE Negative (Negative); OPIATE SCREEN, URINE Positive (Negative)
[2017-12-09] MEDS: CEFTRIAXONE PMX 2GM/50ML 50 ML IV SCH (18:59)
[2017-12-09 19:21] VITALS: BP 97/65
[2017-12-09] MEDS ORDERED: MORPHINE SULFATE 4 MG/ML, 1ML IVPush PRN (19:30)
[2017-12-09] MEDS: PANTOPRAZOLE 40 MG IV IVPush SCH (21:14)
[2017-12-09] MEDS: SODIUM CHLORIDE 0.9% 1,000 ML IV SCH (21:14)
[2017-12-10] MEDS: VALPROATE SODIUM 500 MG in DEXTROSE 5% 100 ML IV SCH ×4 (00:09→20:04)
[2017-12-10] MEDS: METOCLOPRAMIDE 5 MG/ML, 2ML IVPush SCH ×4 (00:09→20:50)
[2017-12-10 01:11] VITALS: BP 93/59
[2017-12-10] MEDS: SODIUM CHLORIDE 0.9% 1,000 ML IV SCH ×2 (05:31→14:07)
[2017-12-10 06:36] VITALS: BP 95/60
[2017-12-10] MEDS: PANTOPRAZOLE 40 MG IV IVPush SCH ×2 (09:18→20:50)
[2017-12-10 12:53] VITALS: BP 90/57
[2017-12-10] MEDS ORDERED: DIPHENHYDRAMINE 25 MG CAPSULE PO PRN ×2 (17:00)
[2017-12-10 19:27] VITALS: BP 96/61
[2017-12-10] MEDS: AMITRIPTYLINE 50 MG TABLET PO SCH (20:49)
[2017-12-10] MEDS: CEFTRIAXONE PMX 2GM/50ML 50 ML IV SCH (21:44)
[2017-12-11] MEDS: VALPROATE SODIUM 500 MG in DEXTROSE 5% 100 ML IV SCH ×4 (01:48→19:40)
[2017-12-11] MEDS: METOCLOPRAMIDE 5 MG/ML, 2ML IVPush SCH ×4 (01:48→21:36)
[2017-12-11 02:39] VITALS: BP 93/59
[2017-12-11] MEDS: SODIUM CHLORIDE 0.9% 1,000 ML IV SCH ×3 (04:12→21:46)
[2017-12-11 08:00] VITALS: BP 107/72
[2017-12-11] MEDS: PANTOPRAZOLE 40 MG IV IVPush SCH ×2 (08:59→21:37)
[2017-12-11 14:33] VITALS: BP 109/72
[2017-12-11] MEDS ORDERED: OXYcodone/APAP 5/325MG TABLET PO PRN (17:30)
[2017-12-11 19:56] VITALS: BP 106/73
[2017-12-11] MEDS: CEFTRIAXONE PMX 2GM/50ML 50 ML IV SCH (21:36)
[2017-12-11] MEDS: AMITRIPTYLINE 50 MG TABLET PO SCH (21:37)
[2017-12-12] MEDS: VALPROATE SODIUM 500 MG in DEXTROSE 5% 100 ML IV SCH ×4 (01:26→23:54)
[2017-12-12 01:27] VITALS: BP 99/65
[2017-12-12] MEDS: METOCLOPRAMIDE 5 MG/ML, 2ML IVPush SCH ×4 (03:49→23:54)
[2017-12-12] MEDS: SODIUM CHLORIDE 0.9% 1,000 ML IV SCH (06:02)
[2017-12-12 08:33] VITALS: BP 112/73
[2017-12-12] MEDS: PANTOPRAZOLE 40 MG IV IVPush SCH ×2 (11:10→22:15)
[2017-12-12 16:01] VITALS: BP 108/74
[2017-12-12 21:05] VITALS: BP 106/72
[2017-12-12] MEDS: CEFTRIAXONE PMX 2GM/50ML 50 ML IV SCH (22:15)
[2017-12-12] MEDS: AMITRIPTYLINE 50 MG TABLET PO SCH (22:15)
[2017-12-13 00:34] VITALS: BP 103/68
[2017-12-13] MEDS: VALPROATE SODIUM 500 MG in DEXTROSE 5% 100 ML IV SCH ×2 (06:08→12:18)
[2017-12-13] MEDS: METOCLOPRAMIDE 5 MG/ML, 2ML IVPush SCH ×2 (06:09→12:24)
[2017-12-13 07:45] VITALS: BP 101/67
[2017-12-13] MEDS: PANTOPRAZOLE 40 MG IV IVPush SCH (08:38)
[2017-12-13 13:36] VITALS: BP 103/70
[2017-12-13] MEDS ORDERED: CEFD300C37 PO (14:59)
[2017-12-13] MEDS ORDERED: SIMV20TA PO (15:03)
== END 2017-12-13 16:33 | disposition home or self-care (01) | DRG 872 ==
LOC: ED 16:41 → EDIP 16:42 → ED 16:46 → SUATTDRO 16:56 → 4WST 17:43
PROVIDERS: ADMIT Hospitalist; ATTEND Hospitalist
DX: A41.51 Sepsis due to Escherichia coli [E. coli] (principal); E78.5 Hyperlipidemia, unspecified; S02.2XXA Fracture of nasal bones, initial encounter for closed fracture; S50.819A Abrasion of unspecified forearm, initial encounter; N39.0 Urinary tract infection, site not specified; S60.811A Abrasion of right wrist, initial encounter; G43.009 Migraine without aura, not intractable, without status migrainosus; S00.81XA Abrasion of other part of head, initial encounter; Y93.01 Activity, walking, marching and hiking; R55 Syncope and collapse; F12.90 Cannabis use, unspecified, uncomplicated; G43.919 Migraine, unspecified, intractable, without status migrainosus; W01.0XXA Fall on same level from slipping, tripping and stumbling without subsequent striking against object, initial encounter; Y92.090 Kitchen in other non-institutional residence as the place of occurrence of the external cause; Y99.8 Other external cause status; Z88.0 Allergy status to penicillin
CPT/HCPCS: 36415; 70450; 70486; 72125; 80053; 80307; 81001; 84484; 84702; 84703; 85025; 87040; 87077; 87086; 87186; 93005; 96374; J0696; J3480; Q0162; C9113; J2270; J2765; J7030; J7040; Q0163

== ENCOUNTER → 2018-04-01 | Outpatient (CLI) | payer OTHER ==
[~2018-04-01] MED LIST changes: +CEFD300C37 PO; +SIMV20TA PO
[2018-04-01 09:51] LABS: BASOPHILS # (AUTO) 0.02 x10^3/uL (0-0.1); BASOPHILS % (AUTO) 0 % (0-1); EOSINOPHILS # (AUTO) 0.04 x10^3/uL (0-0.4); EOSINOPHILS % (AUTO) 1 % (1-7); LYMPHOCYTES # (AUTO) 1.57 x10^3/uL (1-3.4); LYMPHOCYTES % (AUTO) 21 % (22-44); MD NO; MEAN CORPUSCULAR HEMOGLOBIN 28.1 pg (27.0-34.8); MEAN CORPUSCULAR HGB CONC 32.4 g/dL (32.4-35.8); MEAN CORPUSCULAR VOLUME 86.5 fL (80-100); MEAN PLATELET VOLUME 7.2 fL (7.4-10.4); MONOCYTES # (AUTO) 0.47 x10^3/uL (0.2-0.8); MONOCYTES % (AUTO) 6 % (2-9); NEUTROPHILS # (AUTO) 5.33 x10^3/uL (1.8-6.8); NEUTROPHILS % (AUTO) 72 % (42-75); PLATELET COUNT 327 x10^3/uL (130-400); RED BLOOD COUNT 4.81 x10^6/uL (3.82-5.3); RED CELL DISTRIBUTION WIDTH 13.4 % (9.6-15.2)
[2018-04-01 09:55] LABS: ALBUMIN 3.7 g/dL (3.4-5.0); ANION GAP 6 mmol/L (5-15); CALCIUM 8.7 mg/dL (8.5-10.1); CHLORIDE 112 mmol/L (98-107); CREATININE 0.77 mg/dL (0.55-1.02)
[2018-04-01 10:05] LABS: ALANINE AMINOTRANSFERASE 19 U/L (12-78); ALKALINE PHOSPHATASE 61 U/L (45-117); BILIRUBIN,TOTAL 0.2 mg/dL (0.2-1.0); THYROID STIMULATING HORMONE 0.335 mIU/L (0.358-3.740); TOTAL PROTEIN 7.3 g/dL (6.4-8.2)
== END | disposition home or self-care (01) ==
LOC: LAB 09:32
PROVIDERS: ATTEND Internal Medicine
DX: N92.0 Excessive and frequent menstruation with regular cycle (principal)
CPT/HCPCS: 36415; 80053; 82728; 84443; 85025

== ENCOUNTER → 2020-12-07 | Outpatient (CLI) | payer OTHER ==
[~2020-12-07] MED LIST changes: -NORT25CA PO; +NORT25CA78 PO; -NORT50CA PO; +NORT50CA52 PO
== END | disposition home or self-care (01) ==
LOC: CFH 08:09
PROVIDERS: ATTEND Internal Medicine
DX: N63.32 Unspecified lump in axillary tail of the left breast (principal)
CPT/HCPCS: 76642; 77062; 77066; G0279

== ENCOUNTER → 2020-12-19 | Outpatient (CLI) | payer OTHER ==
[2020-12-19 07:16] LABS: BASOPHILS % (AUTO) 0 % (0-1); EOSINOPHILS % (AUTO) 1 % (1-7); LYMPHOCYTES % (AUTO) 26 % (22-44); MEAN CORPUSCULAR HEMOGLOBIN 28.6 pg (27.0-34.8); MEAN CORPUSCULAR HGB CONC 33.1 g/dL (32.4-35.8); MEAN PLATELET VOLUME 6.7 fL (7.4-10.4); MONOCYTES % (AUTO) 7 % (2-9); NEUTROPHILS % (AUTO) 66 % (42-75); PLATELET COUNT 340 x10^3/uL (130-400); RED BLOOD COUNT 4.82 x10^6/uL (3.82-5.3); RED CELL DISTRIBUTION WIDTH 13.3 % (9.6-15.2)
[2020-12-19 07:18] LABS: MD NO
[2020-12-19 07:28] LABS: ALANINE AMINOTRANSFERASE 33 U/L (12-78); ALBUMIN 4.2 g/dL (3.4-5.0); ANION GAP 7 mmol/L (5-15); CALCIUM 9.1 mg/dL (8.5-10.1); CHLORIDE 111 mmol/L (98-107)
[2020-12-19 07:38] LABS: ALKALINE PHOSPHATASE 73 U/L (45-117); BILIRUBIN,TOTAL 0.3 mg/dL (0.2-1.0); CHOL/HDL RATIO 2.6; CHOLESTEROL, TOTAL 197 mg/dL (140-239); HDL CHOL % 38 % (28-40); HDL CHOLESTEROL (DIRECT) 75 mg/dL (40-60); LDL CHOLESTEROL,CALCULATED 109 mg/dL (54-169); LDL/HDL RATIO 1.5 (0.5-3.0); TOTAL PROTEIN 7.9 g/dL (6.4-8.2); TRIGLYCERIDES 65 mg/dL (50-200); VLDL CHOLESTEROL 13 mg/dL (0-25)
== END | disposition home or self-care (01) ==
LOC: LAB 07:03
PROVIDERS: ATTEND Internal Medicine
DX: Z00.01 Encounter for general adult medical examination with abnormal findings (principal)
CPT/HCPCS: 36415; 80053; 80061; 84443; 85025